=== PATIENT | female | born 1970 | race African-American/Black ===

== ENCOUNTER 2020-04-23 23:43 | Emergency (ER) | payer BC ==
[~2020-04-23] VITALS: Ht 170.2 cm; Wt 76.7 kg
[2020-04-24] MEDS ORDERED: PERCOCET 5-3251 EACH PO ×2 (00:19→03:29)
[2020-04-24] MEDS ORDERED: VITAMIN D250 MCG PO (00:23)
[2020-04-24] MEDS ORDERED: VITAMIN E1000 UNIT PO (00:23)
[2020-04-24] MEDS ORDERED: ADVIL200 M1 PO (00:25)
[2020-04-24 00:40] LABS: URINE BILIRUBIN NEGATIVE (Negative); URINE BLOOD NEGATIVE (Negative); URINE CLARITY CLEAR; URINE COLOR YELLOW; URINE GLUCOSE-RANDOM* NEGATIVE (Negative); URINE KETONES NEGATIVE (Negative); URINE LEUKOCYTES-REFLEX TRACE (Negative); URINE NITRITE-REFLEX NEGATIVE (Negative); URINE PROTEIN (DIPSTICK) NEGATIVE (Negative); URINE SPECIFIC GRAVITY <= 1.005 (1.005-1.035); URINE UROBILINOGEN 0.2 E.U./dl (0.2-1.0)
[2020-04-24 01:06] LABS: CALCIUM 7.5 mg/dL (8.5-10.1); CREATININE 0.7 mg/dL (0.6-1.0); POTASSIUM 3.1 mmol/L (3.5-5.1)
[2020-04-24 01:07] LABS: ABSOLUTE NEUTROPHILS 6.6 thou/uL (1.4-8.2); BASOPHILS 0.6 % (0.0-2.0); EOSINOPHILS 1.5 % (0.0-3.0); HEMATOCRIT 30.5 % (37.0-47.0); HEMOGLOBIN 10.6 gm/dL (12.0-15.0); LYMPHOCYTES 27.4 % (24.0-44.0); MCH 24.3 pg (26.0-34.0); MCHC 34.9 g/dL (28.0-37.0); MCV 69.6 fL (80.0-100.0); MONOCYTES 7.6 % (1.0-8.0); PLATELET COUNT 165 thou/uL (150-400); POLYS 62.9 % (36.0-66.0); RBC 4.38 mil/uL (4.20-5.00); WBC 10.5 thou/uL (4.0-11.0)
[2020-04-24 01:10] LABS: ABSOLUTE RETIC COUNT 0.1589 10^6/uL; OBSERVED RETIC COUNT 3.59 % (0.6-2.6)
[2020-04-24 01:12] LABS: ALBUMIN 3.1 g/dL (3.4-5.0); TOTAL BILIRUBIN 1.3 mg/dL (0.2-1.0); TOTAL PROTEIN 6.5 g/dL (6.4-8.2)
[2020-04-24 01:41] LABS: MAGNESIUM 1.7 mg/dL (1.8-2.4); TROPONIN-I <0.06 ng/mL (<0.06)
[2020-04-24 03:36] VITALS: BP 111/64
== END 2020-04-24 03:40 | disposition home or self-care (01) ==
LOC: ER 23:43
PROVIDERS: Emergency Medicine
DX: D57.00 Hb-SS disease with crisis, unspecified (principal); E87.6 Hypokalemia; E83.42 Hypomagnesemia; Z79.899 Other long term (current) drug therapy; Z88.1 Allergy status to other antibiotic agents; Z91.018 Allergy to other foods